=== PATIENT | male | born 1945 | race Caucasian/White ===

== ENCOUNTER 2019-03-02 11:43 | Emergency (ER) | payer OTHER ==
[~2019-03-02] VITALS: Ht 177.8 cm; Wt 98.4 kg
[2019-03-02 11:44] VITALS: BP 137/68
== END 2019-03-02 12:28 | disposition home or self-care (01) ==
LOC: ER 11:43
DX: S61.216D Laceration without foreign body of right little finger without damage to nail, subsequent encounter (principal); W26.8XXD Contact with other sharp object(s), not elsewhere classified, subsequent encounter